=== PATIENT | female | born 1975 | race Caucasian/White ===

== ENCOUNTER 2020-10-13 14:54 | Emergency (ER) | payer OTHER, SELFPAY ==
--- NOTE | ~2020-10-13 | XR_ITS ---
Examination: XR finger LT min 2V, XR hand LT min 3V Indication: Possible dislocation and then s/p reduction Comparison: No pertinent prior studies are currently available for comparison. Technique: 4 views the left hand were obtained followed by 3 dedicated views of the left fifth digit Findings: On initial study, there is posterior dislocation of the fifth PIP joint space. I do not appreciate any definitive fracture associated with this posterior dislocation. Mild degenerative changes seen elsewhere but no other acute bony abnormality noted. No repair foreign body in the soft tissues. Following reduction, 3 views of the left fifth digit demonstrate the fifth PIP joint. Normal anatomic alignment. Again I do not appreciate any definitive fracture. Mild chronic appearing bony changes otherwise. XR/XR hand LT min 3V Impression: Dislocation and then relocation of the fifth PIP joint.
--- NOTE | ~2020-10-13 | XR_ITS ---
Examination: XR finger LT min 2V, XR hand LT min 3V Indication: Possible dislocation and then s/p reduction Comparison: No pertinent prior studies are currently available for comparison. Technique: 4 views the left hand were obtained followed by 3 dedicated views of the left fifth digit Findings: On initial study, there is posterior dislocation of the fifth PIP joint space. I do not appreciate any definitive fracture associated with this posterior dislocation. Mild degenerative changes seen elsewhere but no other acute bony abnormality noted. No repair foreign body in the soft tissues. Following reduction, 3 views of the left fifth digit demonstrate the fifth PIP joint. Normal anatomic alignment. Again I do not appreciate any definitive fracture. Mild chronic appearing bony changes otherwise. XR/XR finger LT min 2V Impression: Dislocation and then relocation of the fifth PIP joint.
[2020-10-13 15:09] VITALS: BP 158/104; PULSE 100; RESP 18; TEMP 36.2; O2SAT 97; BMI 52.5
[2020-10-13] MEDS: oxyCODONE HCl Immed Release 5 MG TABLET PO (15:55)
--- NOTE | 2020-10-13 16:06 | ED_ITS ---
HPI - Extremity Problem General Chief complaint: Extremity Injury, Upper Stated complaint: L PINKY INJ Time Seen by Provider: 10/13/20 15:39 Source: patient and family Mode of arrival: ambulatory Limitations: no limitations History of Present Illness HPI Narrative: 45-year-old female presenting to the ED with complaints of left little pinky finger pain after she fell and landed on her left hand pinky finger and since then has been unable to have normal range of motion. Denies head injury or loss of consciousness or any other injury complaints or concerns at this time. MD Complaint: extremity pain Onset (ago): minute(s) (Prior to arrival) Pain Consistency: constant Location: left and upper extremity (Left pinky finger) Severity scale (1-10): >10 Quality: aching and constant Radiation: none Relieving factors: nothing Exacerbating factors: range of motion Associated symptoms: denies other symptoms Context: other (Fall) Related Data Previous Rx's Medication Instructions Recorded acetaminophen 500 mg tablet 1,000 mg PO QID PRN #14 tab 10/13/20 (Tylenol Extra Strength) naproxen 500 mg tablet 500 mg PO BID PRN #10 tab 10/13/20 oxycodone 5 mg tablet 5 mg PO BID PRN #10 tab 10/13/20 Allergies Allergy/AdvReac Type Severity Reaction Status Date / Time azithromycin AdvReac Vomiting Verified 10/13/20 15:12 Review of Systems Review of Systems: Constitutional : No changes in activity, No lethargy, No recent prior head injury, No agitation, No increased fussiness ENT/Mouth : No Ear Pain, No Nasal discharge/drainage Eyes: No Eye Pain, No Swelling, No Redness, No Foreign Body, No Vision Changes Cardiovascular : No Chest Pain, No SOB Respiratory : No Cough Gastrointestinal : No Nausea, No Vomiting, No abdominal Pain Genitourinary : No Dysuria, No Urinary Frequency, No Urinary Incontinence, No Urgency, No Flank Pain Musculoskeletal : + joint pain, No neck stiffness, No back pain/injury Skin : No lacerations Neuro : No unsteady gait, No Paresthesias, No Loss of Consciousness, No altered mental status, No Headache Yes all other systems are reviewed and are negative PMFSH Past Medical History Attestation statement: The following information was validated with the patient. Medical History High blood pressure Social History Social History Advance Directives: No Advance Directives Information Provided: No Patient : No Physical Exam Vital Signs: Vital Signs: Last Vital Signs Temp 97.2 F 10/13/20 15:09 Pulse 100 10/13/20 15:09 Resp 18 10/13/20 15:09 BP 158/104 H 10/13/20 15:09 Pulse Ox 97 10/13/20 15:09 Body Mass Index 52.5 vital signs have been reviewed as normal and appeared to be correct. Blood pressure hypertensive 150/104 Heart rate normal. Respiration rate normal. Temperature normal. Oxygen saturation normal. Appearance: Alert. Oriented X3. No acute distress. Head: Normal external exam. Normocephalic. Atraumatic. Eyes: PERRLA. EOMI. Conjunctiva and sclera normal. Eyelids normal. ENT: Pharynx normal. Uvula midline. Moist mucous membranes. Neck: Normal inspection. Neck supple. FROM. No adenopathy. No meningeal signs. CVS: Normal heart rate and rhythm. Heart sound normal. Pulses normal throughout. No murmurs/rales/gallops. Respiratory: No respiratory distress. Painless inspiration. Back: Full range of motion noted. No rashes/lesion/induration/fluctuance or signs of infection noted. Skin: Skin warm and dry. Normal skin color. Normal skin turgor. No rashes/lesions/lacerations noted. Extremities: Patient with tenderness of patient to left hand pinky finger with obvious dislocation and limited range of motion due to the dislocation. Otherwise all other Extremities exhibit normal range of motion and nontender. Neuro: Oriented X 3. No motor deficit. No sensory deficit. Reflexes normal. Normal steady gait. No focal neuro deficits noted. Vascular: + radial pulses. Normal cap refill. No cyanosis noted to upper extremity nails. Course Course Course Narrative: 45-year-old female presenting to the ED with left pinky finger pain/dislocation after she fell no head injury loss of consciousness or any other injury complaints or concerns. Patient now status post reduction. Patient tolerated procedure well. No complications. Patient placed in a finger splint will treat symptomatically with instructions to return if any new or worsening symptoms to follow-up with orthopedics in 1-2 weeks if symptoms worsen or persist for possible ligament injury. Patient and sister at bedside understand agree this plan. MDM - Extremity (Nontraumatic) Medical Records Attestation: I reviewed the patient's medical records. Imaging Data Left hand x-ray and reduction x-ray of left hand: Attestation: I personally reviewed and interpreted this imaging study as follows: Radiologist's impression: Findings: On initial study, there is posterior dislocation of the fifth PIP joint space. I do not appreciate any definitive fracture associated with this posterior dislocation. Mild degenerative changes seen elsewhere but no other acute bony abnormality noted. No repair foreign body in the soft tissues. Following reduction, 3 views of the left fifth digit demonstrate the fifth PIP joint. Normal anatomic alignment. Again I do not appreciate any definitive fracture. Mild chronic appearing bony changes otherwise. XR/XR hand LT min 3V Impression: Dislocation and then relocation of the fifth PIP joint. Procedures Orthopedic Joint Reduction Joint #1: Time Out Performed: Yes Side: left Joint Reduction Location: finger Shoulder Technique Used (if applicable): traction/counter-traction Technique used: traction/counter-traction and direct manipulation Post-reduction neuro exam: intact Post-reduction vascular: intact Post Reduction X-Ray Obtained: Yes Post Reduction X-Ray Results: reduced Splint Applied: Yes Patient Tolerated Procedure: well and no complications Discharge Plan Discharge Clinical Impression: Dislocation of finger Patient Disposition: Home, Self-Care Instructions: Finger Dislocation (ED) Prescriptions: New acetaminophen [Tylenol Extra Strength] 500 mg tablet 1,000 mg PO QID PRN (Reason: fever or pain) Qty: 14 RF: 0 naproxen 500 mg tablet 500 mg PO BID PRN (Reason: pain) Qty: 10 RF: 0 oxycodone 5 mg tablet 5 mg PO BID PRN (Reason: pain) Qty: 10 RF: 0 Referrals: Tena Mendes NP [Primary Care Provider] - 2 days Roopa Christianson MD [Physician] - 1 week (Follow-up within 1-2 weeks if symptoms worsen or persist) Stand Alone Forms: Work/School Release Print Language: [place]
== END 2020-10-13 16:16 | disposition home or self-care (01) ==
PROVIDERS: Emergency Provider Student in an Organized Health Care Education/Training Program; PCP Nurse Practitioner
DX: S63.287A Dislocation of proximal interphalangeal joint of left little finger, initial encounter (principal); W01.0XXA Fall on same level from slipping, tripping and stumbling without subsequent striking against object, initial encounter; Y93.9 Activity, unspecified; Y92.9 Unspecified place or not applicable; Y99.9 Unspecified external cause status
CPT/HCPCS: 26770; 29130; 73130; 73140; 99283; 99284

== ENCOUNTER → 2022-03-26 12:36 | Outpatient (BNVA) | payer BC, SELFPAY | PROVIDERS: PCP Nurse Practitioner; Visit Provider Physician Assistant Surgical | DX: Z13.89 Encounter for screening for other disorder (principal) ==

== ENCOUNTER 2022-04-02 09:57 | Outpatient (REF) | payer BC, SELFPAY ==
[2022-04-02 10:15] LABS: MANUAL DIFF FLAG NO
[2022-04-02 10:54] LABS: Basophils Percent Auto 0.4 % (0-2); Eosinophils Absolute Auto 0.3 X10*3/uL (0.0-0.4); Eosinophils Percent Auto 2.7 % (0-4); Hematocrit 35.8 % (37.0-47.0); Hemoglobin 11.1 g/dl (12.0-16.0); Imm Gran Abs Auto 0.05 X10*3/uL (0.00-0.03); Imm Gran Pct Auto 0.5 % (0.0-0.4); Lymphocytes Percent Auto 18.9 % (20-40); Mean Corpuscular Hemoglobin 25.5 pg (27.0-33.0); Mean Corpuscular Volume 82.1 fL (80.0-98.0); Mean Platelet Volume 9.3 fL (9.4-12.3); Monocytes Absolute Auto 0.6 X10*3/uL (0.1-1.2); Monocytes Percent Auto 5.7 % (2-11); Neutrophils Absolute Auto 7.7 x10*3/uL (2.0-8.3); Neutrophils Percent Auto 71.8 % (45-73); Platelet Count 400 X10*3/uL (160-400); Red Blood Count 4.36 X10*6/uL (4.20-5.50); Red Cell Distribution Width 14.6 % (11.0-16.0); White Blood Count 10.8 X10*3/uL (4.8-10.8)
[2022-04-02 11:03] LABS: Estimated Average Glucose 114 mg/dL; Hemoglobin A1c % 5.6 %
[2022-04-02 11:52] LABS: Alanine Aminotransferase 32 U/L (0-31); Albumin Level 3.7 g/dL (3.5-5.0); Alkaline Phosphatase 114 U/L (39-117); Anion Gap 12 (12-20); Aspartate Amino Transferase 21 U/L (5-31); Bilirubin Total 0.7 mg/dL (0.0-1.0); Blood Urea Nitrogen 15 mg/dL (9-16); C Reactive Protein 2.75 mg/dL (< or = 0.50); Calcium 9.3 mg/dL (8.4-10.2); Carbon Dioxide 26 mmol/L (22-29); Chloride 106 mmol/L (96-108); Cholesterol 156 mg/dL; Estimated Glomerular Filt Rate > 60; Glucose Random 80 mg/dL (60-115); HDL Cholesterol 46 mg/dL; Iron 39 mcg/dL (30-160); LDL Cholesterol Calculated 95 mg/dl; Percent Iron Saturation 14 % (15-50); Potassium 4.9 mmol/L (3.3-5.1); Sodium 139 mmol/L (135-145); Total Iron Binding Capacity 272 mcg/dL (228-428); Total Protein 6.8 g/dL (6.5-8.0); Triglycerides 75 mg/dL; Unsaturated Iron Binding 233 ug/dL
[2022-04-02 12:05] LABS: Ferritin 70 ng/mL (10-250); Folate 7.9 ng/mL (> or = 4.0); Insulin 21 uU/mL (2-29); TSH reflex Free T4 0.23 uIU/mL (0.32-4.0); Vitamin B12 584 pg/mL (200-900); Vitamin D 25-OH Total 31.9 ng/mL (>30)
[2022-04-02 14:11] LABS: Free T4 (Free Thyroxine) 1.23 ng/dL (0.71-1.85)
[2022-04-04 13:19] LABS: Calcium (PTHI) 9.3 mg/dL (8.6-10.2); PTHI 46 pg/mL (16-77)
[2022-04-07 00:09] LABS: Zinc 65 mcg/dL (60-130)
[2022-04-07 22:19] LABS: Vitamin A 59 mcg/dL (38-98)
[2022-04-08 14:33] LABS: Vitamin B1 7 nmol/L (8-30)
== END 2022-04-02 09:58 | disposition home or self-care (01) ==
LOC: HO.LAB 09:57
PROVIDERS: PCP Nurse Practitioner; Visit Provider Physician Assistant
DX: E66.01 Morbid (severe) obesity due to excess calories (principal); G47.30 Sleep apnea, unspecified; K76.0 Fatty (change of) liver, not elsewhere classified; R73.03 Prediabetes; I10 Essential (primary) hypertension
CPT/HCPCS: 36415; 80053; 80061; 82306; 82607; 82728; 82746; 83036; 83525; 83540; 83970; 84425; 84439; 84443; 84590; 84630; 85025; 86140

== ENCOUNTER → 2022-04-16 12:30 | Outpatient (BNVA) | payer BC, SELFPAY | PROVIDERS: PCP Nurse Practitioner; Visit Provider Counselor Mental Health | DX: F33.1 Major depressive disorder, recurrent, moderate (principal); E66.01 Morbid (severe) obesity due to excess calories; G47.30 Sleep apnea, unspecified | CPT/HCPCS: 90791 ==

== ENCOUNTER → 2022-05-01 12:30 | Outpatient (BNVA) | payer BC, SELFPAY | PROVIDERS: PCP Nurse Practitioner; Visit Provider Counselor Mental Health | DX: Z13.89 Encounter for screening for other disorder (principal) ==

== ENCOUNTER → 2022-05-02 13:00 | Outpatient (BNVA) | payer BC, SELFPAY | PROVIDERS: PCP Nurse Practitioner; Visit Provider Dietitian, Registered | DX: E66.01 Morbid (severe) obesity due to excess calories (principal); Z71.3 Dietary counseling and surveillance | CPT/HCPCS: 97802 ==

== ENCOUNTER → 2022-05-15 11:15 | Outpatient (BNVA) | payer BC, SELFPAY | PROVIDERS: PCP Nurse Practitioner; Visit Provider Counselor Mental Health | DX: Z13.89 Encounter for screening for other disorder (principal) ==

== ENCOUNTER → 2022-06-06 16:27 | Outpatient (BNVA) | payer BC, SELFPAY | PROVIDERS: PCP Nurse Practitioner; Visit Provider Physician Assistant Surgical | DX: Z13.89 Encounter for screening for other disorder (principal) ==